=== PATIENT | male | born 1995 | race Caucasian/White ===

== ENCOUNTER 2022-07-22 09:36 | Emergency (ER) | payer MEDICAID ==
[~2022-07-22] VITALS: Ht 182.9 cm; Wt 94.3 kg
[2022-07-22 09:36] VITALS: BP_SYST 162
--- NOTE | 2022-07-22 09:36 | NUR ---
BROUGHT BACK TO BED #8 AND TRIAGED. REPORT GIVEN TO YVAN
--- NOTE | 2022-07-22 09:43 | NUR ---
PT BIB SELF, AMBULATED TO BED 8. PT IS A&Ox4, CHIEF COMPLAINT ABDOMINAL PAIN. PT C/O OF ABDOMINAL PAIN ABOVE NAVEL RATING 6/10. PT DESCRIBES PAIN SHARP. PT STATES PAIN BEGAN THIRTY MINUTES AFTER EATING CHILACILES. PT DENIES N/V/D. PT STATES THAT HE HAD EXPERIENCED ABDOMINAL PAIN ONE MONTH AGO THAT LASTED FOR ONE HOUR AND THEN IT WENT AWAY.
--- NOTE | 2022-07-22 09:43 | NUR ---
ER at bedside examining patient.
[2022-07-22] MEDS ORDERED: KETOROLAC TROMETHAMINE 60 MG/2 ML VIAL IM ONE (10:00)
[2022-07-22] MEDS ORDERED: MAG HYDROX/AL HYDROX/SIMETH 30 ML, DICYCLOMINE HCL 20 MG, LIDOCAINE VISCOUS 2% 15ML (PO... PO ONE ×3 (10:00)
[2022-07-22 10:48] LABS: BASOPHILS % (AUTO) 0.5 % (0.0-2.0); EOSINOPHILS # (AUTO) 0.1 K/uL (0.0-0.4); EOSINOPHILS % (AUTO) 1.3 % (0.0-4.0); HEMATOCRIT 41.9 % (36-54); HEMOGLOBIN 14.2 g/dL (14.0-18.0); LYMPHOCYTES # (AUTO) 2.3 K/uL (1.0-5.5); LYMPHOCYTES % (AUTO) 34.7 % (20.5-51.5); MEAN CORPUSCULAR HEMOGLOBIN 30 pg (27-31); MEAN CORPUSCULAR HGB CONC 34 % (32-36); MEAN CORPUSCULAR VOLUME 89 fL (79.0-98.0); MONOCYTES # (AUTO) 0.5 K/uL (0.0-1.0); NEUTROPHILS # (AUTO) 3.7 K/uL (1.8-7.7); NEUTROPHILS % (AUTO) 56.5 % (40.0-70.0); PLATELET COUNT (AUTO) 361 K/uL (130-430); RED BLOOD CELL COUNT(AUTO) 4.71 MIL/uL (4.2-6.2); RED CELL DISTRIBUTION WIDTH 13.3 % (9.0-15.0); WHITE BLOOD COUNT (AUTO) 6.6 K/uL (4.8-10.8)
[2022-07-22 11:06] LABS: ANION GAP 7 (5-15); CHLORIDE 102 mmol/L (98-107); CREATININE 0.88 mg/dL (0.55-1.30); GLUCOSE 133 mg/dL (70-99); UREA NITROGEN, BLOOD 13 mg/dL (8-21)
[2022-07-22 11:08] LABS: BILIRUBIN,URINE NEGATIVE (NEGATIVE); BLOOD, URINE NEGATIVE (NEGATIVE); CLARITY/URINE CLEAR (CLEAR); COLOR,URINE YELLOW (YELLOW); GLUCOSE,URINE NEGATIVE (NEGATIVE); KETONES,URINE NEGATIVE (NEGATIVE); LEUKOCYTE ESTERASE ,URINE NEGATIVE (NEGATIVE); NITRITE, URINE NEGATIVE (NEGATIVE); PROTEIN URINE TRACE (NEGATIVE); UROBILINOGEN,URINE 0.2 (0.2-1.0)
[2022-07-22 11:09] LABS: ALANINE AMINOTRANSFERASE 52 U/L (12-78); ALBUMIN 3.9 g/dL (3.4-4.8); ASPARTATE AMINOTRANSFERASE 68 U/L (10-37); GFR AFRICAN AMERICAN 134 mL/min (>90); LIPASE 174 U/L (73-393); TOTAL BILIRUBIN 0.7 mg/dL (0.0-1.0)
[2022-07-22 11:10] LABS: ALCOHOL, BLOOD < 3 mg/dL (<10)
--- NOTE | 2022-07-22 11:16 | NUR ---
DR QUAN AT BEDSIDE DISCUSSING PLAN OF CARE.
[2022-07-22 11:22] LABS: BARBITURATE, URINE NEGATIVE (NEG <=200); BENZODIAZEPINE, URINE NEGATIVE (NEG <=150); CANNABINOID, URINE NEGATIVE (NEG <=50); COCAINE, URINE NEGATIVE (NEG <=150); METHAMPHETAMINES SCREEN,URINE NEGATIVE (NEG <=500); OPIATE, URINE NEGATIVE (NEG <=100); PHENCYCLIDINE SCREEN,URINE NEGATIVE (NEG <=25); UR TRICYCLIC ANTIDEPRESSANTS NEGATIVE (NEG <=300); URINE AMPHETAMINE NEGATIVE (NEG <=500); URINE METHADONE NEGATIVE (NEG <=200); URINE OXYCODONE SCREEN NEGATIVE (NEG <=100); URINE PROPOXYPHENE SCREEN NEGATIVE (NEG <=300)
[2022-07-22] MEDS ORDERED: ANT30 PO ×2 (11:26→11:27)
[2022-07-22] MEDS ORDERED: OMEP20TA20 PO ×2 (11:26→11:27)
[2022-07-22 11:38] VITALS: BP_SYST 140
--- NOTE | 2022-07-22 11:39 | NUR ---
Patient given written and verbal discharge instructions and verbalizes understanding. ER DR QUAN discussed with patient the results and treatment provided. Patient in stable condition. ID arm band removed. Rx of MYLANTA AND OMEPRAZOLE given. Patient educated on pain management and to follow up with PMD. Pain Scale 2/10. Opportunity for questions provided and answered. Medication side effect fact sheet provided.
== END 2022-07-22 11:39 | disposition home or self-care (01) ==
LOC: SED 09:36
DX: R10.13 Epigastric pain (principal); R10.33 Periumbilical pain; Z79.899 Other long term (current) drug therapy
CPT/HCPCS: 99283; 80307; 80053; 83690; 85025; 36415; 96372; 81003; G0482; J2001; J1885